=== PATIENT | male | born 1995 | race Caucasian/White ===

== ENCOUNTER 2021-02-03 10:00 | Emergency (ER) | payer MEDICAID ==
[~2021-02-03] VITALS: Ht 170.2 cm; Wt 72.6 kg
--- NOTE | 2021-02-03 10:01 | NUR ---
PT BIBA TO BED 05, ACCOMPANIED BY [facility].
[2021-02-03 10:10] VITALS: BP 118/67
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
--- NOTE | 2021-02-03 10:27 | NUR ---
[place] [facility] AT BEDSIDE WITH PATIENT AT THIS TIME
[2021-02-03 10:40] LABS: BASOPHILS # (AUTO) 0.1 K/uL (0.00-0.22); BASOPHILS % (AUTO) 0.8 % (0.0-2.0); EOSINOPHILS # (AUTO) 0.1 K/uL (0-0.4); EOSINOPHILS % (AUTO) 1.2 % (0.0-4.0); HEMATOCRIT 47.5 % (36-52); HEMOGLOBIN 16.7 g/dL (12.0-18.0); LYMPHOCYTES % (AUTO) 19.9 % (20.5-51.1); MEAN CORPUSCULAR HEMOGLOBIN 33 pg (27-31); MEAN CORPUSCULAR HGB CONC 35 g/dL (33-37); MEAN CORPUSCULAR VOLUME 94.4 fL (80-94); MONOCYTES # (AUTO) 0.7 K/uL (0.8-1.0); MONOCYTES % (AUTO) 6.6 % (1.7-9.3); NEUTROPHILS # (AUTO) 7.2 K/uL (1.8-7.7); NEUTROPHILS % (AUTO) 71.5 % (42.2-75.2); PLATELET COUNT (AUTO) 272 K/uL (140-450); RED BLOOD CELL COUNT(AUTO) 5.03 MIL/uL (4.20-6.10); RED CELL DISTRIBUTION WIDTH 12.4 % (11.6-13.7); WHITE BLOOD COUNT (AUTO) 10.1 K/uL (4.8-10.8)
--- NOTE | 2021-02-03 10:45 | NUR ---
IVIS AND COVID SWAB SENT TO LAB
[2021-02-03 10:56] LABS: ALBUMIN 4.1 g/dL (3.4-5.0); ANION GAP 12.3 (8-16); ASPARTATE AMINOTRANSFERASE 17 U/L (15-37); CARBON DIOXIDE 29.2 mmol/L (21-32); CHLORIDE 100 mmol/L (98-107); GFR ARICAN-AMERICAN 114 mL/min (>90); GLUCOSE 110 mg/dL (74-106); POTASSIUM 3.5 mmol/L (3.5-5.1); SODIUM SERUM 138 mmol/L (136-145); TOTAL BILIRUBIN 0.8 mg/dL (0.0-1.0); UREA NITROGEN, BLOOD 11 mg/dL (7-18)
[2021-02-03 11:00] LABS: ACETAMINOPHEN < 0.5 ug/ml (10-30); SALICYLATE < 2.8 mg/dL (2.8-20.0)
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
--- NOTE | 2021-02-03 11:28 | NUR ---
SPOKE WITH KASSIE FROM [facility] IN REGARDS TO PATIENT WALKING OUT OF FACILITY.
[2021-02-03 11:32] LABS: BARBITURATE, URINE NEGATIVE ng/ml (NEG <=200); BENZODIAZEPINE, URINE NEGATIVE ng/mL (NEG <=200); CANNABINOID, URINE POSITIVE ng/mL (NEG <=50); COCAINE, URINE NEGATIVE ng/mL (NEG <=300); OPIATE, URINE NEGATIVE ng/mL (NEG <=2000); PHENCYCLIDINE SCREEN,URINE NEGATIVE ng/mL (NEG <=25)
--- NOTE | 2021-02-03 13:25 | NUR ---
FOLLOWED UP WITH [facility] REGARDING STATUS OF PATIENT AND THEY STATED THEY WERE NOT ABLE TO LOCATE PATIENT.
--- NOTE | 2021-02-03 15:26 | NUR ---
SPOKE WITH OFFICER PAYAM FROM [facility]. PER OFFICER GOT REPORT NUMBER FOR MISSING PERSON. OFFICER STATES PT HAS WARRANT OUT FOR ARREST AND TO CALL [facility] IF HE RETURNS TO FACILITY. REPORT #[id number]
== END 2021-02-03 11:28 | disposition left against medical advice (07) ==
LOC: MED 10:00
DX: R45.851 Suicidal ideations (principal); F15.10 Other stimulant abuse, uncomplicated; Z20.822 Contact with and (suspected) exposure to COVID-19
CPT/HCPCS: 36415; 80053; 80305; 85025; 87426; 93005; 99285; G0480; G0482; U0003

== ENCOUNTER 2023-11-01 01:50 | Emergency (ER) | payer MEDICAID, OTHER ==
[~2023-11-01] VITALS: Ht 170.2 cm; Wt 86.6 kg
[2023-11-01 02:05] VITALS: BP 139/92; PULSE 117; RESP 18; TEMP 98.8; O2SAT 100
[2023-11-01] MEDS ORDERED: LORazepam 1 MG TAB PO ONE ×2 (03:55→19:00)
[2023-11-01] MEDS ORDERED: LORazepam 2 MG/ML VIAL IM ONE ×2 (04:35→05:35)
[2023-11-01] MEDS ORDERED: OLANZapine 5 MG ODT SL ONE (04:35)
[2023-11-01] MEDS ORDERED: diphenhydrAMINE 50 MG/ML VIAL ONE (06:09)
[2023-11-01] MEDS ORDERED: diphenhydrAMINE 50 MG/ML VIAL IM ONE (06:15)
[2023-11-01 06:19] LABS: BASOPHILS # (AUTO) 0.1 K/uL (0.00-0.22); BASOPHILS % (AUTO) 1.1 % (0.0-2.0); EOSINOPHILS % (AUTO) 0.5 % (0.0-4.0); HEMATOCRIT 41.4 % (36-52); HEMOGLOBIN 14.3 g/dL (12.0-18.0); LYMPHOCYTES # (AUTO) 1.5 K/uL (2.0-11.5); LYMPHOCYTES % (AUTO) 19.1 % (20.5-51.1); MEAN CORPUSCULAR HEMOGLOBIN 32 pg (27-31); MEAN CORPUSCULAR HGB CONC 35 g/dL (33-37); MEAN CORPUSCULAR VOLUME 92.3 fL (80-94); MONOCYTES # (AUTO) 0.6 K/uL (0.8-1.0); MONOCYTES % (AUTO) 8.1 % (1.7-9.3); NEUTROPHILS # (AUTO) 5.4 K/uL (1.8-7.7); NEUTROPHILS % (AUTO) 71.2 % (42.2-75.2); PLATELET COUNT (AUTO) 328 K/uL (140-450); RED BLOOD CELL COUNT(AUTO) 4.49 MIL/uL (4.20-6.10); RED CELL DISTRIBUTION WIDTH 12.3 % (11.6-13.7); WHITE BLOOD COUNT (AUTO) 7.6 K/uL (4.8-10.8)
[2023-11-01 06:30] LABS: ALANINE AMINOTRANSFERASE 33 U/L (12-78); ALBUMIN 4.1 g/dL (3.4-5.0); ALKALINE PHOSPHATASE 88 U/L (50-136); ANION GAP 14.7 (8-16); ASPARTATE AMINOTRANSFERASE 28 U/L (15-37); CALCIUM 9.4 mg/dL (8.5-10.1); CARBON DIOXIDE 25.9 mmol/L (21-32); CHLORIDE 102 mmol/L (98-107); CREATININE 1.2 mg/dL (0.6-1.3); GFR ARICAN-AMERICAN 91 mL/min (>90); GFR NON ARICAN-AMERICAN 76 mL/min (>90); GLUCOSE 130 mg/dL (74-106); POTASSIUM 3.6 mmol/L (3.5-5.1); SODIUM SERUM 139 mmol/L (136-145); TOTAL BILIRUBIN 0.8 mg/dL (0.0-1.0); TOTAL PROTEIN, SERUM 9.2 g/dL (6.4-8.2); UREA NITROGEN, BLOOD 23 mg/dL (7-18)
[2023-11-01 06:43] LABS: ALCOHOL, BLOOD < 3 mg/dL (<10)
[2023-11-01 06:45] LABS: ACETAMINOPHEN < 0.5 ug/ml (10-30); SALICYLATE < 2.8 mg/dL (2.8-20.0)
[2023-11-01] MEDS ORDERED: HALOPERIDOL IM 5 MG/ML VIAL IM ONE (07:15)
[2023-11-01] MEDS ORDERED: FAMO-90 PO (10:45)
[2023-11-01 14:33] VITALS: TEMP 97.8
[2023-11-01] MEDS ORDERED: SERTRALINE 50 MG TAB ONE (18:35)
[2023-11-01] MEDS ORDERED: OLANZapine 5 MG ODT ONE (18:36)
[2023-11-01 19:35] LABS: AMPHETAMINE, URINE POSITIVE ng/ml (NEG <=1000); BARBITURATE, URINE NEGATIVE ng/ml (NEG <=200); BENZODIAZEPINE, URINE POSITIVE ng/mL (NEG <=200); CANNABINOID, URINE NEGATIVE ng/mL (NEG <=50); COCAINE, URINE NEGATIVE ng/mL (NEG <=300); OPIATE, URINE NEGATIVE ng/mL (NEG <=2000); PHENCYCLIDINE SCREEN,URINE NEGATIVE ng/mL (NEG <=25)
[2023-11-01 19:52] VITALS: BP 126/81; PULSE 89; RESP 19; O2SAT 98
[2023-11-01] MEDS ORDERED: OLANZapine 5 MG ODT PO SCH (21:00)
[2023-11-02] MEDS ORDERED: SERTRALINE 50 MG TAB PO SCH (09:00)
== END 2023-11-02 03:52 ==
LOC: MED 01:50
DX: R45.851 Suicidal ideations (principal); Z20.822 Contact with and (suspected) exposure to COVID-19; F41.9 Anxiety disorder, unspecified; F15.10 Other stimulant abuse, uncomplicated; F20.9 Schizophrenia, unspecified; F31.9 Bipolar disorder, unspecified; Z79.899 Other long term (current) drug therapy
CPT/HCPCS: 36415; 71045; 80053; 80305; 85025; 87426; 93005; 96372; 99291; G0480; G0482; J1200; J1630; J2060

== ENCOUNTER 2023-11-07 00:17 | Emergency (ER) | payer MEDICAID, OTHER ==
[~2023-11-07] VITALS: Ht 167.6 cm; Wt 79.4 kg
[~2023-11-07 00:17] MED LIST: FAMO-90 PO
[2023-11-07 00:30] VITALS: BP 122/94; PULSE 122; RESP 20; TEMP 97.4; O2SAT 97
[2023-11-07] MEDS ORDERED: SERTRALINE 50 MG TAB PO ONE (00:55)
[2023-11-07] MEDS ORDERED: SERT50TA PO (01:22)
[2023-11-07] MEDS ORDERED: OLAN2.5T1 PO (01:26)
== END 2023-11-07 01:30 | disposition home or self-care (01) ==
LOC: MED 00:17
DX: F31.9 Bipolar disorder, unspecified (principal); Z79.899 Other long term (current) drug therapy
CPT/HCPCS: 93005; 99283